=== PATIENT | female | born 1935 | race Hispanic/Latino ===

== ENCOUNTER 2021-09-15 17:56 | Observation (INO) | payer MEDICARE, BC ==
[~2021-09-15] VITALS: Ht 157.5 cm; Wt 56.7 kg
[~2021-09-15 17:56] MED LIST: ALENDRONATE SOD70 MG PO; AMLODIPINE BESY10 MG PO; GLIPIZIDE10 MG PO; LIPITOR20 MG PO; LOSARTAN POTASS25 MG PO; METFORMIN HCL500 M2 PO
[2021-09-15] MEDS ORDERED: ONDANSETRON HCL INJ 2MG/ML 2ML 2 MG/ML VIAL IV PRN (18:45)
[2021-09-15] MEDS ORDERED: SODIUM CHLORIDE 0.9% 500ML 500 ML IV ONE (18:45)
[2021-09-15 19:24] LABS: BASOPHILS # (AUTO) 0.1 (0.0-0.1); BASOPHILS % 0.5 % (0.0-1.0); EOSINOPHILS # (AUTO) 0.1 (0.0-0.4); EOSINOPHILS % 0.5 % (0.0-6.0); HEMATOCRIT 35.9 % (34.2-44.1); HEMOGLOBIN 11.1 g/dL (12.0-16.0); LYMPHOCYTES # (AUTO) 1.2 (1.0-3.2); LYMPHOCYTES % 10.4 % (18.0-39.1); MEAN CORPUSCULAR HEMOGLOBIN 25.5 pg (28-32); MEAN CORPUSCULAR HGB CONC 30.9 g/dL (31-35); MEAN CORPUSCULAR VOLUME 82.5 fL (81-99); MONOCYTES # (AUTO) 0.7 (0.2-0.8); MONOCYTES % 6.1 % (4.4-11.3); NEUTROPHILS # (AUTO) 9.4 (2.1-6.9); NEUTROPHILS % 82.1 % (38.7-80.0); PLATELET COUNT 345 x10e3/uL (140-360); RED BLOOD COUNT 4.35 x10e6/uL (3.6-5.1); RED CELL DISTRIBUTION WIDTH 14.6 % (11.7-14.4)
[2021-09-15 19:45] LABS: ALBUMIN 3.3 g/dL (3.5-5.0); CALCIUM 9.1 mg/dL (8.4-10.2); CREATININE, SERUM 0.95 mg/dL (0.57-1.11)
[2021-09-15] MEDS ORDERED: DEXTROSE 50% SYRINGE 50 ML IV STA (20:07)
[2021-09-15] MEDS ORDERED: DEXTROSE 50% SYRINGE 50 ML IV ONE ×2 (20:14→20:15)
[2021-09-15 21:11] LABS: CLARITY,URINE CLEAR (CLEAR); COLOR,URINE YELLOW (YELLOW); LEUKOCYTE ESTERASE ,URINE NEGATIVE (NEGATIVE); NITRITE,URINE NEGATIVE (NEGATIVE); PROTEIN,URINE DIPSTICK 1+ (NEGATIVE)
[2021-09-15 21:12] LABS: KETONES,URINE NEGATIVE (NEGATIVE)
[2021-09-15] MEDS ORDERED: SODIUM CHLORIDE 0.9% 1000ML 1,000 ML IV SCH (21:30)
[2021-09-15 21:42] LABS: BACTERIA,URINE FEW /HPF; EPITHELIAL CELLS,URINE RARE /LPF; RBC,URINE 0-5 /HPF (0-5); WBC,URINE (MAN) 0-5 /HPF (0-5)
[2021-09-15] MEDS ORDERED: HYDRALAZINE HCL 20 MG/ML VIAL ONE (22:10)
[2021-09-15] MEDS ORDERED: HYDRALAZINE HCL 20 MG/ML VIAL IV PRN (22:30)
[2021-09-16] VITALS (9 sets, daily range): BP systolic 134–177; BP diastolic 41–66
[2021-09-16] MEDS: DEXTROSE 50% SYRINGE 50 ML IV PRN ×2 (00:35→05:18)
[2021-09-16] MEDS ORDERED: NITROFURANTOIN100 MG PO (01:11)
[2021-09-16] MEDS ORDERED: GLIPIZIDE ER5 MG PO (01:11)
[2021-09-16] MEDS ORDERED: HYDROCHLOROTH12.5 MG PO (01:11)
[2021-09-16] MEDS ORDERED: METFORMIN HCL500 MG PO (01:11)
[2021-09-16] MEDS ORDERED: TRICOR145 MG PO (01:11)
[2021-09-16] MEDS ORDERED: IRBESARTAN150 MG PO (01:11)
[2021-09-16] MEDS ORDERED: ATORVASTATIN CA20 MG PO (01:11)
[2021-09-16] MEDS ORDERED: DOCUSATE SODIUM 100 MG CAP PO PRN (05:15)
[2021-09-16] MEDS: DEXTROSE 5%/0.45% SOD CHL 1,000 ML IV SCH ×2 (05:20→18:36)
[2021-09-16 05:36] LABS: BASOPHILS # (AUTO) 0.1 (0.0-0.1); BASOPHILS % 0.5 % (0.0-1.0); EOSINOPHILS # (AUTO) 0.1 (0.0-0.4); EOSINOPHILS % 1.2 % (0.0-6.0); HEMATOCRIT 29.8 % (34.2-44.1); HEMOGLOBIN 9.2 g/dL (12.0-16.0); LYMPHOCYTES # (AUTO) 1.1 (1.0-3.2); LYMPHOCYTES % 11.2 % (18.0-39.1); MEAN CORPUSCULAR HGB CONC 30.9 g/dL (31-35); MEAN CORPUSCULAR VOLUME 84.2 fL (81-99); MONOCYTES # (AUTO) 0.8 (0.2-0.8); MONOCYTES % 8.3 % (4.4-11.3); NEUTROPHILS # (AUTO) 7.6 (2.1-6.9); NEUTROPHILS % 78.4 % (38.7-80.0); PLATELET COUNT 247 x10e3/uL (140-360); RED BLOOD COUNT 3.54 x10e6/uL (3.6-5.1); RED CELL DISTRIBUTION WIDTH 14.9 % (11.7-14.4)
[2021-09-16 05:54] LABS: ANION GAP 11.9 mmol/L (8-16); CREATININE, SERUM 0.83 mg/dL (0.57-1.11)
[2021-09-16 06:06] LABS: POTASSIUM 2.9 mmol/L (3.5-5.1)
[2021-09-16 06:20] LABS: CHOL/HDL RATIO 3.7 (3.0-3.6)
[2021-09-16] MEDS ORDERED: POTASSIUM CHLORIDE 20 MEQ TAB CR PO STA (06:22)
[2021-09-16] MEDS: FENOFIBRATE 145 MG TAB PO SCH (08:35)
[2021-09-16] MEDS: ATORVASTATIN 20 MG TAB PO SCH (08:35)
[2021-09-16] MEDS: IRBESARTAN 150 MG TAB PO SCH (08:35)
[2021-09-16] MEDS: ACETAMINOPHEN 325 MG TAB PO PRN (15:55)
[2021-09-16] MEDS: ENOXAPARIN SOD INJ 40 MG/0.4 ML SYR SC SCH (18:00)
[2021-09-17] VITALS (8 sets, daily range): BP systolic 132–162; BP diastolic 44–58
[2021-09-17] MEDS: DEXTROSE 5%/0.45% SOD CHL 1,000 ML IV SCH (08:07)
[2021-09-17] MEDS: IRBESARTAN 150 MG TAB PO SCH (10:11)
[2021-09-17] MEDS: FENOFIBRATE 145 MG TAB PO SCH (10:11)
[2021-09-17] MEDS: ATORVASTATIN 20 MG TAB PO SCH (10:11)
[2021-09-17] MEDS: ACETAMINOPHEN 325 MG TAB PO PRN (11:33)
[2021-09-17] MEDS: METOPROLOL TARTRATE 25 MG TAB PO SCH ×2 (14:30→17:00)
[2021-09-17 14:50] LABS: BASOPHILS # (AUTO) 0.1 (0.0-0.1); BASOPHILS % 0.5 % (0.0-1.0); EOSINOPHILS # (AUTO) 0.1 (0.0-0.4); EOSINOPHILS % 0.7 % (0.0-6.0); HEMATOCRIT 29.5 % (34.2-44.1); HEMOGLOBIN 9.1 g/dL (12.0-16.0); LYMPHOCYTES # (AUTO) 0.9 (1.0-3.2); MEAN CORPUSCULAR HGB CONC 30.8 g/dL (31-35); MEAN CORPUSCULAR VOLUME 84.3 fL (81-99); MONOCYTES # (AUTO) 0.5 (0.2-0.8); MONOCYTES % 4.4 % (4.4-11.3); NEUTROPHILS % 85.8 % (38.7-80.0); PLATELET COUNT 260 x10e3/uL (140-360)
[2021-09-17] MEDS: Aztreonam 1 GM in SODIUM CHLORIDE 0.9% 50ML 50 ML IV SCH ×2 (15:00→22:00)
[2021-09-17 15:09] LABS: ANION GAP 9.6 mmol/L (8-16); CALCIUM 7.6 mg/dL (8.4-10.2); CREATININE, SERUM 0.84 mg/dL (0.57-1.11); POTASSIUM 3.6 mmol/L (3.5-5.1)
[2021-09-17] MEDS: ENOXAPARIN SOD INJ 40 MG/0.4 ML SYR SC SCH (17:43)
[2021-09-18] VITALS: BP 128/40
[2021-09-18] MEDS: DEXTROSE 5%/0.45% SOD CHL 1,000 ML IV SCH
[2021-09-18 04:00] VITALS: BP 142/42
[2021-09-18] MEDS: Aztreonam 1 GM in SODIUM CHLORIDE 0.9% 50ML 50 ML IV SCH (05:11)
[2021-09-18] MEDS ORDERED: LOPRESSOR25 MG PO (08:06)
[2021-09-18] MEDS ORDERED: ZOFRAN4 MG PO (08:06)
[2021-09-18] MEDS ORDERED: LEVOFLOXACIN250 MG PO (08:08)
[2021-09-18] MEDS: ATORVASTATIN 20 MG TAB PO SCH (09:00)
[2021-09-18] MEDS: FENOFIBRATE 145 MG TAB PO SCH (09:00)
[2021-09-18] MEDS: IRBESARTAN 150 MG TAB PO SCH (09:00)
[2021-09-18] MEDS: METOPROLOL TARTRATE 25 MG TAB PO SCH (09:00)
[2021-09-18 09:08] LABS: BASOPHILS # (AUTO) 0.1 (0.0-0.1); BASOPHILS % 0.5 % (0.0-1.0); EOSINOPHILS # (AUTO) 0.1 (0.0-0.4); EOSINOPHILS % 0.5 % (0.0-6.0); HEMATOCRIT 29.5 % (34.2-44.1); HEMOGLOBIN 9.2 g/dL (12.0-16.0); LYMPHOCYTES # (AUTO) 1.1 (1.0-3.2); LYMPHOCYTES % 7.6 % (18.0-39.1); MEAN CORPUSCULAR HEMOGLOBIN 26.1 pg (28-32); MEAN CORPUSCULAR HGB CONC 31.2 g/dL (31-35); MEAN CORPUSCULAR VOLUME 83.8 fL (81-99); MONOCYTES # (AUTO) 0.7 (0.2-0.8); MONOCYTES % 4.5 % (4.4-11.3); NEUTROPHILS % 86.2 % (38.7-80.0); PLATELET COUNT 257 x10e3/uL (140-360); RED BLOOD COUNT 3.52 x10e6/uL (3.6-5.1); RED CELL DISTRIBUTION WIDTH 14.9 % (11.7-14.4)
[2021-09-18 09:25] LABS: ANION GAP 11.5 mmol/L (8-16); CALCIUM 7.7 mg/dL (8.4-10.2); CREATININE, SERUM 0.84 mg/dL (0.57-1.11); POTASSIUM 3.5 mmol/L (3.5-5.1)
[2021-09-18 10:31] VITALS: BP 125/42
[2021-09-19] MEDS ORDERED: BALSAM PERU/CASTOR OIL 60 GM OINT...G. TP SCH (09:00)
== END 2021-09-18 10:20 | disposition home or self-care (01) ==
LOC: ER 18:07 → ERHOLD 21:24 → MED/SURG 23:20
PROVIDERS: ADMIT Internal Medicine; ATTEND Internal Medicine
DX: E16.2 Hypoglycemia, unspecified (principal); E78.2 Mixed hyperlipidemia; Z20.822 Contact with and (suspected) exposure to COVID-19
CPT/HCPCS: 36415 ×4; 71045; 80048 ×3; 80053; 80061; 81001; 82948 ×4; 83036; 84132; 84484; 85025 ×4; 87040; 87086; 87186; 93005; 94799; 97116; 97162; 97530; 99251; 99284; G0378 ×4; J0360; J1650 ×2; J7030; J7040; J7799 ×2; U0002

== ENCOUNTER 2023-02-08 11:34 | Inpatient (IN) | payer MEDICARE, BC ==
[~2023-02-08] VITALS: Ht 157.5 cm; Wt 56.7 kg
[~2023-02-08 11:34] MED LIST changes: +ATORVASTATIN CA20 MG PO; +GLIPIZIDE ER5 MG PO; +HYDROCHLOROTH12.5 MG PO; +IRBESARTAN150 MG PO; +LEVOFLOXACIN250 MG PO; +LOPRESSOR25 MG PO; +METFORMIN HCL500 MG PO; +NITROFURANTOIN100 MG PO; +TRICOR145 MG PO; +ZOFRAN4 MG PO
[2023-02-08] MEDS ORDERED: SODIUM CHLORIDE FLUSH 10 ML SYR IV PRN (12:00)
[2023-02-08 12:09] LABS: BASOPHILS # (AUTO) 0.1 (0.0-0.1); EOSINOPHILS # (AUTO) 0.1 (0.0-0.4); EOSINOPHILS % 1.2 % (0.0-6.0); HEMATOCRIT 34.8 % (34.2-44.1); HEMOGLOBIN 10.7 g/dL (12.0-16.0); LYMPHOCYTES # (AUTO) 1.3 (1.0-3.2); LYMPHOCYTES % 15.6 % (18.0-39.1); MEAN CORPUSCULAR HEMOGLOBIN 26.2 pg (28-32); MEAN CORPUSCULAR HGB CONC 30.7 g/dL (31-35); MEAN CORPUSCULAR VOLUME 85.3 fL (81-99); MONOCYTES # (AUTO) 0.8 (0.2-0.8); NEUTROPHILS # (AUTO) 5.8 (2.1-6.9); NEUTROPHILS % 71.7 % (38.7-80.0); PLATELET COUNT 246 x10e3/uL (140-360); RED BLOOD COUNT 4.08 x10e6/uL (3.6-5.1); RED CELL DISTRIBUTION WIDTH 15.6 % (11.7-14.4)
[2023-02-08 12:29] LABS: ALBUMIN 2.4 g/dL (3.5-5.0); ALBUMIN/GLOBULIN RATIO 0.6 (0.8-2.0); ANION GAP 12.2 mmol/L (8-16); CALCIUM 8.6 mg/dL (8.4-10.2); CREATININE, SERUM 1.42 mg/dL (0.57-1.11); POTASSIUM 3.2 mmol/L (3.5-5.1)
[2023-02-08] MEDS ORDERED: ASPIRIN 81 MG CHEW TAB PO ONE (13:45)
[2023-02-08] MEDS ORDERED: SODIUM CHLORIDE FLUSH 10 ML SYR INJ PRN (13:45)
[2023-02-08] MEDS: FUROSEMIDE INJ 10 MG/ML 4 ML VIAL IV SCH ×2 (15:54→22:32)
[2023-02-08] MEDS ORDERED: NITROGLYCERIN 2% OINT 1 GM PKT ONE (17:14)
[2023-02-08] MEDS ORDERED: NITROGLYCERIN 2% OINT 1 GM PKT TOP ONE (17:15)
[2023-02-08 21:30] VITALS: BP 197/63; PULSE 84; RESP 19; TEMP 99.5; O2SAT 100
[2023-02-08 21:39] VITALS: BP 197/63; PULSE 84; RESP 19; TEMP 99.5; O2SAT 94
[2023-02-08] MEDS ORDERED: POTASSIUM CHLORIDE 20 MEQ TAB CR PO STA (23:11)
[2023-02-09] VITALS (9 sets, daily range): BP systolic 128–197; BP diastolic 47–66; PULSE 73–89; RESP 16–19; TEMP 97.6–99.5; O2SAT 93–96
[2023-02-09] MEDS ORDERED: ARICEPT10 MG PO (00:29)
[2023-02-09] MEDS ORDERED: MIRTAZAPINE15 MG PO (00:29)
[2023-02-09] MEDS ORDERED: NAMENDA10 MG PO (00:29)
[2023-02-09] MEDS ORDERED: CITALOPRAM HBR20 MG PO (00:29)
[2023-02-09] MEDS ORDERED: CLONAZEPAM 0.5 MG TAB PO PRN (00:45)
[2023-02-09] MEDS ORDERED: ZIPRASIDONE 20 MG VIAL IM PRN (00:45)
[2023-02-09] MEDS ORDERED: IRBESARTAN 150 MG TAB PO ONE (01:30)
[2023-02-09 03:37] LABS: BASOPHILS # (AUTO) 0.1 (0.0-0.1); BASOPHILS % 0.7 % (0.0-1.0); EOSINOPHILS # (AUTO) 0.1 (0.0-0.4); EOSINOPHILS % 1.5 % (0.0-6.0); HEMATOCRIT 31.7 % (34.2-44.1); HEMOGLOBIN 9.8 g/dL (12.0-16.0); LYMPHOCYTES # (AUTO) 1.3 (1.0-3.2); LYMPHOCYTES % 17.2 % (18.0-39.1); MEAN CORPUSCULAR HEMOGLOBIN 26.1 pg (28-32); MEAN CORPUSCULAR HGB CONC 30.9 g/dL (31-35); MEAN CORPUSCULAR VOLUME 84.3 fL (81-99); MONOCYTES # (AUTO) 0.8 (0.2-0.8); NEUTROPHILS # (AUTO) 5.3 (2.1-6.9); NEUTROPHILS % 70.2 % (38.7-80.0); PLATELET COUNT 239 x10e3/uL (140-360); RED BLOOD COUNT 3.76 x10e6/uL (3.6-5.1); RED CELL DISTRIBUTION WIDTH 15.1 % (11.7-14.4)
[2023-02-09 03:56] LABS: ALBUMIN 2.4 g/dL (3.5-5.0); ALBUMIN/GLOBULIN RATIO 0.7 (0.8-2.0); CALCIUM 8.5 mg/dL (8.4-10.2); CREATININE, SERUM 1.4 mg/dL (0.57-1.11)
[2023-02-09] MEDS: HYDRALAZINE HCL 20 MG/ML VIAL IV PRN (06:57)
[2023-02-09] MEDS: CITALOPRAM HYDROBROMIDE 20 MG TAB PO SCH ×2 (09:00→09:59)
[2023-02-09] MEDS: IRBESARTAN 150 MG TAB PO SCH ×2 (09:00→10:00)
[2023-02-09] MEDS ORDERED: MEMANTINE 10 MG TAB PO SCH (09:00)
[2023-02-09] MEDS: FUROSEMIDE INJ 10 MG/ML 4 ML VIAL IV SCH (10:00)
[2023-02-09] MEDS ORDERED: POTASSIUM CHLORIDE 20 MEQ TAB CR PO ONE (14:00)
[2023-02-09] MEDS ORDERED: POTASSIUM CHLORIDE 20MEQ/100ML 200 ML IV ONE (16:00)
[2023-02-09] MEDS: APIXABAN 5 MG TABLET PO SCH (17:26)
[2023-02-09] MEDS: MIRTAZAPINE 15 MG TAB PO SCH (21:13)
[2023-02-09] MEDS: DONEPEZIL HCL 5 MG TAB PO SCH (21:14)
[2023-02-10] VITALS (10 sets, daily range): BP systolic 138–198; BP diastolic 49–68; PULSE 70–86; RESP 16–18; TEMP 97.4–98.7; O2SAT 94–99
[2023-02-10 06:03] LABS: BASOPHILS % 0.6 % (0.0-1.0); EOSINOPHILS # (AUTO) 0.1 (0.0-0.4); EOSINOPHILS % 2.3 % (0.0-6.0); HEMATOCRIT 31.8 % (34.2-44.1); HEMOGLOBIN 9.7 g/dL (12.0-16.0); LYMPHOCYTES # (AUTO) 1.8 (1.0-3.2); LYMPHOCYTES % 29.1 % (18.0-39.1); MEAN CORPUSCULAR HEMOGLOBIN 25.8 pg (28-32); MEAN CORPUSCULAR HGB CONC 30.5 g/dL (31-35); MEAN CORPUSCULAR VOLUME 84.6 fL (81-99); MONOCYTES # (AUTO) 0.7 (0.2-0.8); MONOCYTES % 10.8 % (4.4-11.3); NEUTROPHILS # (AUTO) 3.5 (2.1-6.9); NEUTROPHILS % 56.7 % (38.7-80.0); PLATELET COUNT 278 x10e3/uL (140-360); RED BLOOD COUNT 3.76 x10e6/uL (3.6-5.1); RED CELL DISTRIBUTION WIDTH 15.5 % (11.7-14.4)
[2023-02-10 06:36] LABS: ALBUMIN 2.1 g/dL (3.5-5.0); ALBUMIN/GLOBULIN RATIO 0.7 (0.8-2.0); CALCIUM 8.3 mg/dL (8.4-10.2); CREATININE, SERUM 1.74 mg/dL (0.57-1.11)
[2023-02-10 06:48] LABS: THYROID STIMULATING HORMONE 0.682 uIU/mL (0.350-4.940)
[2023-02-10] MEDS: APIXABAN 5 MG TABLET PO SCH (08:32)
[2023-02-10] MEDS: IRBESARTAN 150 MG TAB PO SCH (08:34)
[2023-02-10] MEDS: METOPROLOL SUCCINATE 25 MG TAB XL PO SCH (08:34)
[2023-02-10] MEDS: CITALOPRAM HYDROBROMIDE 20 MG TAB PO SCH (08:34)
[2023-02-10] MEDS ORDERED: POTASSIUM CHLORIDE 10MEQ/100ML 200 ML IV ONE (16:15)
[2023-02-10] MEDS ORDERED: APIXABAN 5 MG TABLET PO SCH (17:00)
[2023-02-10] MEDS: DONEPEZIL HCL 5 MG TAB PO SCH (20:10)
[2023-02-10] MEDS: MIRTAZAPINE 15 MG TAB PO SCH (20:10)
[2023-02-10] MEDS: HYDRALAZINE HCL 20 MG/ML VIAL IV PRN (20:34)
[2023-02-11] VITALS (9 sets, daily range): BP systolic 134–183; BP diastolic 46–62; PULSE 68–87; RESP 15–18; TEMP 97.7–98.3; O2SAT 94–99
[2023-02-11] MEDS: CITALOPRAM HYDROBROMIDE 20 MG TAB PO SCH (08:32)
[2023-02-11] MEDS: METOPROLOL SUCCINATE 25 MG TAB XL PO SCH (08:34)
[2023-02-11] MEDS ORDERED: IRBESARTAN 150 MG TAB PO SCH (09:00)
[2023-02-11] MEDS: FUROSEMIDE 20 MG TAB PO SCH (12:01)
[2023-02-11] MEDS: DONEPEZIL HCL 5 MG TAB PO SCH (21:15)
[2023-02-11] MEDS: MIRTAZAPINE 15 MG TAB PO SCH (21:15)
[2023-02-11] MEDS: HYDRALAZINE HCL 20 MG/ML VIAL IV PRN (21:15)
[2023-02-12] VITALS: BP 116/69; PULSE 69; RESP 16; TEMP 97.3; O2SAT 96
[2023-02-12 04:50] VITALS: BP_SYST 123; BP_SYST 150; BP_DIAS 40; BP_DIAS 44; PULSE 75; PULSE 76; RESP 16; RESP 20; TEMP 97.5; TEMP 98.2; O2SAT 100; O2SAT 93
[2023-02-12 06:02] LABS: BASOPHILS # (AUTO) 0.1 (0.0-0.1); BASOPHILS % 0.8 % (0.0-1.0); EOSINOPHILS # (AUTO) 0.3 (0.0-0.4); LYMPHOCYTES # (AUTO) 1.6 (1.0-3.2); LYMPHOCYTES % 22.3 % (18.0-39.1); MEAN CORPUSCULAR HEMOGLOBIN 25.9 pg (28-32); MEAN CORPUSCULAR HGB CONC 30.3 g/dL (31-35); MEAN CORPUSCULAR VOLUME 85.5 fL (81-99); MONOCYTES # (AUTO) 0.6 (0.2-0.8); MONOCYTES % 7.6 % (4.4-11.3); NEUTROPHILS # (AUTO) 4.7 (2.1-6.9); NEUTROPHILS % 64.9 % (38.7-80.0); PLATELET COUNT 334 x10e3/uL (140-360); RED BLOOD COUNT 3.86 x10e6/uL (3.6-5.1); RED CELL DISTRIBUTION WIDTH 15.3 % (11.7-14.4)
[2023-02-12 06:31] VITALS: PULSE 72; RESP 16; O2SAT 96
[2023-02-12 06:31] LABS: ALBUMIN 2.1 g/dL (3.5-5.0); ALBUMIN/GLOBULIN RATIO 0.7 (0.8-2.0); ANION GAP 12.1 mmol/L (8-16); CALCIUM 8.4 mg/dL (8.4-10.2); CREATININE, SERUM 1.37 mg/dL (0.57-1.11); POTASSIUM 3.1 mmol/L (3.5-5.1)
[2023-02-12 08:15] VITALS: BP 154/52; PULSE 73; RESP 17; TEMP 98.1; O2SAT 93
[2023-02-12] MEDS ORDERED: IRBESARTAN 150 MG TAB PO SCH (09:00)
[2023-02-12] MEDS: FUROSEMIDE 20 MG TAB PO SCH (11:24)
[2023-02-12] MEDS: CITALOPRAM HYDROBROMIDE 20 MG TAB PO SCH (11:25)
[2023-02-12] MEDS: METOPROLOL SUCCINATE 25 MG TAB XL PO SCH (11:25)
[2023-02-12 12:43] VITALS: BP 130/47; PULSE 97; RESP 22; TEMP 98.1; O2SAT 95
[2023-02-12 16:00] VITALS: BP 142/44; PULSE 67; RESP 17; TEMP 98.3; O2SAT 98
== END 2023-02-12 18:01 | disposition home or self-care (01) | DRG 291 ==
LOC: ER 11:45 → ERHOLD 13:47 → MED/SURG2 21:01 → OBSVTOIN 02-09 17:30
PROVIDERS: ADMIT Internal Medicine; ATTEND Internal Medicine
DX: I13.0 Hypertensive heart and chronic kidney disease with heart failure and stage 1 through stage 4 chronic kidney disease, or unspecified chronic kidney disease (principal); J81.0 Acute pulmonary edema; I82.502 Chronic embolism and thrombosis of unspecified deep veins of left lower extremity; J90 Pleural effusion, not elsewhere classified; I50.32 Chronic diastolic (congestive) heart failure; N17.9 Acute kidney failure, unspecified; E11.22 Type 2 diabetes mellitus with diabetic chronic kidney disease; G30.9 Alzheimer's disease, unspecified; F02.80 Dementia in other diseases classified elsewhere, unspecified severity, without behavioral disturbance, psychotic disturbance, mood disturbance, and anxiety; E11.69 Type 2 diabetes mellitus with other specified complication; N18.32 Chronic kidney disease, stage 3b; D63.1 Anemia in chronic kidney disease; E87.6 Hypokalemia; E78.00 Pure hypercholesterolemia, unspecified; I25.10 Atherosclerotic heart disease of native coronary artery without angina pectoris; R31.9 Hematuria, unspecified; E83.51 Hypocalcemia; Z20.822 Contact with and (suspected) exposure to COVID-19; Z88.0 Allergy status to penicillin; Z90.49 Acquired absence of other specified parts of digestive tract; Z79.84 Long term (current) use of oral hypoglycemic drugs; Z98.1 Arthrodesis status
CPT/HCPCS: 0223U; 36415; 51700; 71045; 74176; 80053; 80061; 82550; 82553; 82948; 83036; 83735; 83880; 84443; 84484; 85025; 93005; 93306; 93970; 94760; 94799; 99284; G0378; J1940; J3480; J3486